=== PATIENT | female | born 1985 | race Caucasian/White ===

== ENCOUNTER 2017-07-01 09:11 | Emergency (ER) | payer OTHER ==
[~2017-07-01] VITALS: Ht 154.9 cm; Wt 54.4 kg
[2017-07-01 09:11] VITALS: BP 100/67
== END 2017-07-01 09:42 | disposition home or self-care (01) ==
LOC: ER 09:13
DX: Z48.01 Encounter for change or removal of surgical wound dressing (principal); E11.9 Type 2 diabetes mellitus without complications
CPT/HCPCS: 99282; A4606; A6402; A6407; Z7610

== ENCOUNTER 2017-07-20 10:23 | Emergency (ER) | payer OTHER ==
[~2017-07-20] VITALS: Ht 154.9 cm; Wt 55.8 kg
[2017-07-20] MEDS ORDERED: IV NS 0.9% 1,000 ML BAG IV ONE (13:00)
[2017-07-20 13:20] LABS: CREATININE 0.7 mg/dL (0.6-1.3); POTASSIUM 4.1 mmol/L (3.5-5.1)
[2017-07-20 13:59] LABS: THYROID STIMULATING HORMONE < 0.007 uIU/mL (0.358-3.74)
--- NOTE | 2017-07-20 15:03 | NUR ---
Patient discharged to home in stable condition. Written and verbal after care instructions given. Patient verbalizes understanding of instruction.IV removed. Catheter intact and site benign. Pressure and 4x4 applied to site. No bleeding noted.
[2017-07-20 15:06] VITALS: BP 136/72
== END 2017-07-20 15:11 | disposition home or self-care (01) ==
LOC: ER 10:29
DX: R00.0 Tachycardia, unspecified (principal); E11.65 Type 2 diabetes mellitus with hyperglycemia; Z88.5 Allergy status to narcotic agent; F15.90 Other stimulant use, unspecified, uncomplicated; Z88.1 Allergy status to other antibiotic agents; F17.200 Nicotine dependence, unspecified, uncomplicated
CPT/HCPCS: 36415; 80048; 82962; 84439; 84443; 84481; 93005; 96365; 99285; A4606; J7030; Z7610